=== PATIENT | male | born 1940 | race Caucasian/White ===

== ENCOUNTER 2016-09-29 17:07 | Inpatient (IN) ==
[2016-09-29] MEDS ORDERED: 0.9 % Sodium Chloride 1,000 ML IVC ONE (17:12)
[2016-09-29] MEDS ORDERED: Piperacillin/Tazobactam 3.375 GM in D5% in Water (Mini-Bag+) 100 ML IVPB ONE (17:12)
[2016-09-29] MEDS ORDERED: Levofloxacin 750 MG/150 ML 750 MG/150 ML BAG IVPB ONE (17:12)
[2016-09-29] MEDS ORDERED: Vancomycin 1,500 MG in D5% in Water 250 ML IVPB ONE (17:14)
--- NOTE | 2016-09-29 17:19 | Emergency Department Note ---
Disposition Clinical Impression: Respiratory distress, ALS (amyotrophic lateral sclerosis) Pulmonary embolism Qualifiers: Pulmonary embolism type: other Chronicity: unspecified Acute cor pulmonale presence: without acute cor pulmonale Qualified Code(s): I26.99 - Other pulmonary embolism without acute cor pulmonale Pneumonia Qualifiers: Pneumonia type: due to unspecified organism Laterality: unspecified laterality Lung location: unspecified part of lung Qualified Code(s): J18.9 - Pneumonia, unspecified organism Disposition: Admitted As Inpatient Condition: Critical SOB HPI - General Chief Complaint: ED Shortness of Breath/Dyspnea Stated Complaint: "als, respdistress, PE" Source: patient, EMS Mode of arrival: EMS Limitations: age Nursing Notes Reviewed: Yes Vital Signs Reviewed: Yes - History of Present Illness 76-year-old male with a history of ALS, COPD, diabetes presents for evaluation from the [facility] inpatient unit for concerns of increasing work of breathing and respiratory distress. Patient also has a history of recent PE diagnosed by CTA on September 25 and the patient on therapeutic Lovenox. Patient's is a DNR CCA DNR I. The patient confirms that he does not want intubation or breathing tube. EMS reports that the patient passed a swallow study a couple days ago but notes worsening respiratory symptoms that occurred around noon today after possibly receiving his medications. Patient is not able to provide a complete review of systems given his current increased work of breathing and respiratory distress. Much of the history and physical reviewed by chart document dictation from the [facility] reveals acute hyper [place] toward failure secondary to exacerbation of COPD. Patient was placed on positive pressure ventilation prior to arrival. Patient was receiving Solu-Medrol 80 mg as well as nebs. Patient was being treated for healthcare acquired pneumonia with Zosyn which appeared to be improving until this ER presentation. Patient did have a document of a PE with right lower lobe filling defect from CTA on Lovenox. Patient had a negative head CT on September 25 for any intracranial bleed. Family not at bedside to provide additional history. - Related Data Allergies Allergy/AdvReac Type Severity Reaction Status Date / Time No Known Allergies Allergy Verified 07/30/16 03:54 Limitations: ROS unobtainable due to patients medical condition Past Medical History - Past Medical History Medical history: Reports: cancer, COPD, coronary artery disease, DVT, diabetes, hyperlipidemia, hypertension, pulmonary embolus, other Psychiatric history: Reports: no psych history - Social History Smoking Status: Former smoker Smokeless Tobacco Status: No Alcohol use: Reports: none Drug use: Reports: none Physical Exam - General Limitations: physical limitation General appearance: alert, in distress, other (Appears chronically ill) - Head Head exam: atraumatic, normocephalic - Eye Eye exam: Present: normal appearance, EOMI. Absent: scleral icterus - ENT ENT exam: normal exam, mucous membranes moist - Neck Neck exam: Present: normal inspection - Chest Chest inspection: Present: normal inspection, symmetric chest wall rise - Respiratory Respiratory exam: Present: respiratory distress, accessory muscle use, prolonged expiratory phase, other (Diffusely decreased breath sounds with right- sided ronchi) - Cardiovascular Cardiovascular exam: Present: regular rate, normal rhythm. Absent: systolic murmur - Abdominal Exam Abdominal exam: Present: soft, Non-Tender, distention. Absent: guarding, rebound - Male exam: Present: other (Dia catheter present draining pink tinged urine) - Extremities Exam Extremities exam: Present: normal inspection, pedal edema (1+ bilateral) - Expanded Lower Extremity Exam Neurovascular/Tendon exam: Present: normal capillary refill - Neurological Exam Neurological exam: Present: alert, CN II-XII intact - Skin Skin exam: Present: warm, dry, intact, normal color Course Course Narrative: Patient seen and examined initially upon arrival. Patient's on positive pressure ventilation. Patient confirms that he does not want any intubation if his breathing were to worsen. Patients receiving IV potassium prehospital due to prehospital labs obtained earlier today which showed a potassium of 3. Concerns for the patient's respiratory decline. Etiologies include known pulmonary embolism, aspiration pneumonia, exacerbation of COPD. Patient does have ALS and is at increased risk of aspiration even given the recent swallow study. Patient will get an extensive workup including labs, ABG, EKG, troponin , lactate as well as IV fluids, empiric antibiotics initiated for healthcare associated pneumonia. Given the patient's volume status and unknown cardiac EF will titrate gradually with IV fluids. The patient appears to have a nonfocal neurologic examination. The patient also has had a negative head CT on September 25. Patient's CTA of the chest from 09/25 shows a filling defect in the anterior left lobe segmental pulmonary artery consistent with pulmonary embolism. Also had diffuse wall thickening with multifocal areas of plugging/ secretions. Mild patchy areas of increased density in the right upper lobe right lower lobe and left lower lobe consistent with atelectasis or pneumonia. Patient does have potassium hanging. Disposition admission. - Reevaluation(s) Reevaluation #1: Patient seen and examined. Patient's on 60% FiO2 satting 90%. Patient's chest x-ray shows no acute cardiopulmonary disease. However patient was on Zosyn prior to and chest x-ray findings may be delayed. Empiric antibiotics are started. No elevated Aa gradient. Bedside echo does show a trace pericardial fluid but no evidence of tamponade. Patient may also have progression of his chronic lower motor neuron disease. Time: 18:12 Reevaluation #2: Spoke with hospitalist regarding patient's care. Patient will be admitted. Patient also aware of plan of care. Time: 18:32 Reevaluation #3: Patient had acute change in hypoxia. Patient's FiO2 was increased to 100%. Respiratory called for DuoNeb's. Time: 19:11 Additional Reevaluation(s): 2003: Patient remains in the [facility] department awaiting transportation. Patient is requiring increased BiPAP settings. Patient received nebs. Patient continues to be a DNR CCA CCI. Refusing intubation. We will continue support the patient's respirations. Family contacted and made aware of the patient's critical condition. Vital Signs Respiratory Rate 21 09/29/16 17:08 Blood Pressure 154/74 09/29/16 17:08 O2 Sat by Pulse Oximetry 98 09/29/16 17:08 Temperature 97.8 F 09/29/16 17:12 Pulse Rate 89 09/29/16 19:21 Respiratory Rate 22 09/29/16 19:21 Blood Pressure 132/57 09/29/16 19:21 O2 Sat by Pulse Oximetry 81 09/29/16 19:21 Oxygen Delivery Oxygen Delivery Bipap Shortness of Breath/Dyspnea - [facility] Narrative Medical decision making narrative: 76-year-old male with a history of ALS presented for evaluation of respiratory distress. [facility] Continue that therapy here upon arrival. Patient was requiring positive pressure ventilation. Patient confirmed that he does not want intubation if his respiratory status declined. Patient had a complete evaluation looking for etiology of patient's respiratory distress. Patient chest x-ray did not show any acute findings however this may be delayed finding with possible aspiration. Empiric antibiotics were added to the Zosyn. Patient also has a [facility] of this month was on therapeutic Lovenox. Patient's labs reviewed that show leukocytosis possibly related to steroid use or secondary infection. Patient's bedside echo was heart showed trace effusion but no evidence of tamponade not. Patient's lab also so hypokalemia and was given IV potassium therapy prehospital which was continued in the emergency department. Patient is alert and appropriate. Patient possibly has exacerbation of his chronic ALS. Patient will be admitted to the hospital service for further evaluation and monitoring. Family was called regarding the patient's condition. Patient was updated on plan of care. - Lab Data Lab results reviewed: Yes I reviewed the patient's lab results. Result diagrams: 09/29/16 17:38 09/29/16 17:38 Lab Results 09/29/16 09/29/16 09/29/16 Range/Units 17:13 17:22 17:38 WBC 12.3 H (4.3-11.1) K/mcL RBC 3.50 L (4.19-5.50) M/mcL Hgb 10.2 L (12.9-16.9) g/dL Hct 32.0 L (37.5-50.1) % MCV 91.4 (83.0-100.0) fL MCH 29.1 (28.0-33.3) pg MCHC 31.9 (31.6-35.5) g/dL RDW 13.2 (11.5-14.5) % Plt Count 330 (140-400) K/mcL MPV 9.4 (9.4-12.4) fL Immature Gran % 1.7 (0-4) % Seg Neutrophils % 87.8 % Lymphocytes % 3.4 % Monocytes % 6.9 % Eosinophils % 0.0 % Basophils % 0.2 % Neutrophils # 10.8 H (1.6-8.9) K/mcL Lymphocytes # 0.4 L (0.6-4.6) K/mcL Monocytes # 0.8 (0.0-1.3) K/mcL Eosinophils # 0.0 (0.0-0.6) K/mcL Basophils # 0.0 (0.0-0.2) K/mcL Nucleated RBCs/100 WBC 0.2 H (0) /100 WBC PT (9.4-12.1) Seconds INR APTT (26.0-36.0) Seconds ABG pH 7.36 (7.32-7.45) pH Units ABG pCO2 55 H (35-45) mmHg ABG pO2 88 (85-104) mmHg ABG HCO3 31.1 H (21-27) mEQ/L ABG Total CO2 32.8 H (20-26) mEq/L ABG O2 Saturation 96 (95-98) % ABG Base Excess 4.6 H (-2.0 to 3.0) mEq/L Blood Gas Modality VENT Inspired O2 40 % Sodium (136-145) mEq/L Potassium (3.5-4.5) mEq/L Chloride (98-109) mEq/L Carbon Dioxide (19-29) mEq/L BUN (8-26) mg/dL Creatinine (0.72-1.25) mg/dL Est GFR ( Amer) (> 60) Est GFR (Non-Af Amer) (> 60) BUN/Creatinine Ratio (6-26) Glucose (70-99) mg/dL Calculated Osmolality (280-300) Lactic Acid (0.5-2.2) mmol/L Calcium (8.6-10.8) mg/dL Phosphorus (2.3-4.7) mg/dL Magnesium (1.6-2.6) mg/dL Total Bilirubin (0.2-1.2) mg/dL Direct Bilirubin (0.0-0.5) mg/dL Indirect Bilirubin (0.0-1.2) mg/dL AST (5-34) Units/L ALT (0-55) Units/L Alkaline Phosphatase (38-126) Units/L Troponin I (0-0.03) ng/mL B-Natriuretic Peptide (0-100) pg/mL Serum Total Protein (6.0-8.3) g/dL Albumin (3.5-5.0) g/dL Globulin (2.4-3.5) g/dL Albumin/Globulin Ratio (1.1-2.2) Ur Specimen Adequacy See below A Urine Color Red A (Yellow) Urine Clarity Cloudy A (Clear) Urine pH 6.0 (5.0-8.0) pH Units Ur Specific [place] > 1.030 H (1.010-1.025) Urine Protein 100 H (Neg-Trace) mg/dL Urine Glucose (UA) >=1000 H (Normal) mg/dL Urine Ketones 80 H (Negative) mg/dL Urine Blood Large H (Negative) Urine Nitrite Negative (Negative) Urine Bilirubin Negative (Negative) Urine Urobilinogen Normal (Normal) mg/dL Ur Leukocyte Esterase Negative (Negative) Ur Culture Indicated? NO (NO) 09/29/16 09/29/16 09/29/16 Range/Units 17:38 17:38 17:38 WBC (4.3-11.1) K/mcL RBC (4.19-5.50) M/mcL Hgb (12.9-16.9) g/dL Hct (37.5-50.1) % MCV (83.0-100.0) fL MCH (28.0-33.3) pg MCHC (31.6-35.5) g/dL RDW (11.5-14.5) % Plt Count (140-400) K/mcL MPV (9.4-12.4) fL Immature Gran % (0-4) % Seg Neutrophils % % Lymphocytes % % Monocytes % % Eosinophils % % Basophils % % Neutrophils # (1.6-8.9) K/mcL Lymphocytes # (0.6-4.6) K/mcL Monocytes # (0.0-1.3) K/mcL Eosinophils # (0.0-0.6) K/mcL Basophils # (0.0-0.2) K/mcL Nucleated RBCs/100 WBC (0) /100 WBC PT 12.5 H (9.4-12.1) Seconds INR 1.2 APTT 38.1 H (26.0-36.0) Seconds ABG pH (7.32-7.45) pH Units ABG pCO2 (35-45) mmHg ABG pO2 (85-104) mmHg ABG HCO3 (21-27) mEQ/L ABG Total CO2 (20-26) mEq/L ABG O2 Saturation (95-98) % ABG Base Excess (-2.0 to 3.0) mEq/L Blood Gas Modality Inspired O2 % Sodium 144 (136-145) mEq/L Potassium 3.0 L (3.5-4.5) mEq/L Chloride 105 (98-109) mEq/L Carbon Dioxide 31 H (19-29) mEq/L BUN 24 (8-26) mg/dL Creatinine 0.56 L (0.72-1.25) mg/dL Est GFR ( Amer) > 60 (> 60) Est GFR (Non-Af Amer) > 60 (> 60) BUN/Creatinine Ratio 43 H (6-26) Glucose 216 H (70-99) mg/dL Calculated Osmolality 309 H (280-300) Lactic Acid 1.2 (0.5-2.2) mmol/L Calcium 8.4 L (8.6-10.8) mg/dL Phosphorus 1.6 L (2.3-4.7) mg/dL Magnesium 2.0 (1.6-2.6) mg/dL Total Bilirubin 0.9 (0.2-1.2) mg/dL Direct Bilirubin 0.2 (0.0-0.5) mg/dL Indirect Bilirubin 0.7 (0.0-1.2) mg/dL AST 43 H (5-34) Units/L ALT 119 H (0-55) Units/L Alkaline Phosphatase 55 (38-126) Units/L Troponin I (0-0.03) ng/mL B-Natriuretic Peptide (0-100) pg/mL Serum Total Protein 6.1 (6.0-8.3) g/dL Albumin 3.4 L (3.5-5.0) g/dL Globulin 2.7 (2.4-3.5) g/dL Albumin/Globulin Ratio 1.3 (1.1-2.2) Ur Specimen Adequacy Urine Color (Yellow) Urine Clarity (Clear) Urine pH (5.0-8.0) pH Units Ur Specific [place] (1.010-1.025) Urine Protein (Neg-Trace) mg/dL Urine Glucose (UA) (Normal) mg/dL Urine Ketones (Negative) mg/dL Urine Blood (Negative) Urine Nitrite (Negative) Urine Bilirubin (Negative) Urine Urobilinogen (Normal) mg/dL Ur Leukocyte Esterase (Negative) Ur Culture Indicated? (NO) 09/29/16 09/29/16 Range/Units 17:38 17:38 WBC (4.3-11.1) K/mcL RBC (4.19-5.50) M/mcL Hgb (12.9-16.9) g/dL Hct (37.5-50.1) % MCV (83.0-100.0) fL MCH (28.0-33.3) pg MCHC (31.6-35.5) g/dL RDW (11.5-14.5) % Plt Count (140-400) K/mcL MPV (9.4-12.4) fL Immature Gran % (0-4) % Seg Neutrophils % % Lymphocytes % % Monocytes % % Eosinophils % % Basophils % % Neutrophils # (1.6-8.9) K/mcL Lymphocytes # (0.6-4.6) K/mcL Monocytes # (0.0-1.3) K/mcL Eosinophils # (0.0-0.6) K/mcL Basophils # (0.0-0.2) K/mcL Nucleated RBCs/100 WBC (0) /100 WBC PT (9.4-12.1) Seconds INR APTT (26.0-36.0) Seconds ABG pH (7.32-7.45) pH Units ABG pCO2 (35-45) mmHg ABG pO2 (85-104) mmHg ABG HCO3 (21-27) mEQ/L ABG Total CO2 (20-26) mEq/L ABG O2 Saturation (95-98) % ABG Base Excess (-2.0 to 3.0) mEq/L Blood Gas Modality Inspired O2 % Sodium (136-145) mEq/L Potassium (3.5-4.5) mEq/L Chloride (98-109) mEq/L Carbon Dioxide (19-29) mEq/L BUN (8-26) mg/dL Creatinine (0.72-1.25) mg/dL Est GFR ( Amer) (> 60) Est GFR (Non-Af Amer) (> 60) BUN/Creatinine Ratio (6-26) Glucose (70-99) mg/dL Calculated Osmolality (280-300) Lactic Acid (0.5-2.2) mmol/L Calcium (8.6-10.8) mg/dL Phosphorus (2.3-4.7) mg/dL Magnesium (1.6-2.6) mg/dL Total Bilirubin (0.2-1.2) mg/dL Direct Bilirubin (0.0-0.5) mg/dL Indirect Bilirubin (0.0-1.2) mg/dL AST (5-34) Units/L ALT (0-55) Units/L Alkaline Phosphatase (38-126) Units/L Troponin I 0.01 (0-0.03) ng/mL B-Natriuretic Peptide 126 H (0-100) pg/mL Serum Total Protein (6.0-8.3) g/dL Albumin (3.5-5.0) g/dL Globulin (2.4-3.5) g/dL Albumin/Globulin Ratio (1.1-2.2) Ur Specimen Adequacy Urine Color (Yellow) Urine Clarity (Clear) Urine pH (5.0-8.0) pH Units Ur Specific [place] (1.010-1.025) Urine Protein (Neg-Trace) mg/dL Urine Glucose (UA) (Normal) mg/dL Urine Ketones (Negative) mg/dL Urine Blood (Negative) Urine Nitrite (Negative) Urine Bilirubin (Negative) Urine Urobilinogen (Normal) mg/dL Ur Leukocyte Esterase (Negative) Ur Culture Indicated? (NO) - Radiology Data Radiology results reviewed: Yes I reviewed the patient's radiology results. Chest X-Ray 09/29/16 17:12 IMPRESSION: No acute cardiopulmonary disease. D/ / Kareem Allen MD / Kareem Allen MD Interpreting Provider: Kareem Allen MD - EKG Data EKG attestation: Yes I reviewed and interpreted this EKG. EKG shows normal: Reports: sinus rhythm Rate: Reports: normal Rhythm: Reports: NSR [place]/QRS: Reports: normal T wave inversions noted in: Reports: v1, v2, v3, v4 (Flattened), v5 (Flattened) QRS morphology: Reports: poor R-wave progression When compared to previous EKG there are: previous EKG unavailable Interpretation: Reports: nonspecific ST-T wave changes S.B.A.R. - S.B.A.R. Situation: Demographics Background: Presenting Complaint Assessment: Vital Signs, Course and respsone to treatment, Patient/Family Expectation, Pertinant Lab Results, Outstanding Labs Recommendation: Barrier(s) to disposition, Recommendation based on pending studies, treatments, or consults S.B.A.R. Report Given to: Zan Patel Repor Time: 18:32 Attestation Statement - Attestation Attestation: I dr ngo examined this patient and my medical decision-making was reviewed with the COMMISSION[employer]/PA/Advanced Practice Nurse/Resident Physician. I agree with the documented findings, disposition and treatment plan as described except to the extent set forth below. Patient was transferred over from the [place] hospital. Patient and increasing respiratory distress. Patient was recently diagnosed with a recurrent pulmonary embolus in the left lung. Patient also is in respiratory distress with COPD and CO2 retention. He had a recent pneumonia that was diagnosed on September 25. Patient has been on Zosyn for this. It seems based on chest x-ray reports that the pneumonia had been clearing up. He is a DNR CCA with no intubation. Patient is also been treated with Lovenox and apparently has had blood in the Dia catheter as well as coughing [facility] some [facility]. Plan at this time is to continue his BiPAP treatment for the CO2 retention. Repeat labs ABG and chest x-ray.
[2016-09-29 17:20] LABS: ABG Base Excess 4.6 mEq/L (-2.0 to 3.0); ABG HCO3 31.1 mEQ/L (21-27); ABG Oxygen Saturation 96 % (95-98); ABG PCO2 55 mmHg (35-45); ABG PH 7.36 pH Units (7.32-7.45); ABG PO2 88 mmHg (85-104); ABG TCO2 32.8 mEq/L (20-26)
[2016-09-29 17:23] LABS: Blood Gas FiO2 40 %
[2016-09-29 17:45] LABS: Bilirubin,Urine Negative (Negative); Blood,Urine Large (Negative); Glucose,Urine (UA) >=1000 mg/dL (Normal); Ketones,Urine 80 mg/dL (Negative); Leukocyte Esterase,Urine Negative (Negative); Nitrite,Urine Negative (Negative); Protein,Urine 100 mg/dL (Neg-Trace); Specific Gravity,Urine > 1.030 (1.010-1.025); Urobilinogen,Urine Normal (Normal)
[2016-09-29 17:46] LABS: Clarity,Urine Cloudy (Clear); Color,Urine Red (Yellow)
[2016-09-29 18:07] LABS: Basophils % 0.2 %; Hemoglobin 10.2 g/dL (12.9-16.9); Immature Granulocytes % 1.7 % (0-4); Lymphocytes # 0.4 K/mcL (0.6-4.6); Lymphocytes % 3.4 %; Mean Corpuscular HGB Conc 31.9 g/dL (31.6-35.5); Mean Corpuscular Hemoglobin 29.1 pg (28.0-33.3); Mean Corpuscular Volume 91.4 fL (83.0-100.0); Mean Platelet Volume 9.4 fL (9.4-12.4); Monocytes # 0.8 K/mcL (0.0-1.3); Monocytes % 6.9 %; Neutrophils # 10.8 K/mcL (1.6-8.9); Nucleated Red Blood Cells 0.2 /100 WBC (0); Platelet Count 330 K/mcL (140-400); Red Cell Distribution Width 13.2 % (11.5-14.5); Segmented Neutrophils % 87.8 %
[2016-09-29 18:12] LABS: INR 1.2; Prothrombin Time 12.5 Seconds (9.4-12.1)
[2016-09-29 18:15] LABS: Activated Partial Thrombo Time 38.1 Seconds (26.0-36.0)
[2016-09-29 18:21] LABS: Alanine Aminotransferase 119 Units/L (0-55); Albumin 3.4 g/dL (3.5-5.0); Albumin/Globulin Ratio 1.3 (1.1-2.2); Alkaline Phosphatase 55 Units/L (38-126); Aspartate Amino Transferase 43 Units/L (5-34); BUN/Creatinine Ratio 43 (6-26); Bilirubin,Direct 0.2 mg/dL (0.0-0.5); Bilirubin,Indirect 0.7 mg/dL (0.0-1.2); Bilirubin,Total 0.9 mg/dL (0.2-1.2); Blood Urea Nitrogen 24 mg/dL (8-26); Calcium 8.4 mg/dL (8.6-10.8); Carbon Dioxide 31 mEq/L (19-29); Chloride 105 mEq/L (98-109); Globulin 2.7 g/dL (2.4-3.5); Glucose 216 mg/dL (70-99); Osmolality,Calculated 309 (280-300); Phosphorous 1.6 mg/dL (2.3-4.7); Sodium 144 mEq/L (136-145); Total Protein 6.1 g/dL (6.0-8.3); eGFR For African Americans > 60 (> 60); eGFR For Non-African Americans > 60 (> 60)
[2016-09-29] MEDS ORDERED: Ipratropium/Albuterol Neb 3 ML IH ONE (19:01)
--- NOTE | 2016-09-29 20:25 | Internal Med History&Physical ---
Date of Encounter: 09/29/16 Time of Encounter: 20:18 Assessment and Plan (1) Acute hypoxemic respiratory failure Current visit: Yes Status: Acute Likely secondary to COPD exacerbation in setting of possible aspiration pneumonia Given patient's code status of DNR-CCA/DNI, will support with BiPAP, breathing treatments Will keep patient comfortable and decrease work of breathing with anxiolytic and analgesics Start steroids at 40 mg q8hr (2) COPD (chronic obstructive pulmonary disease) Current visit: Yes Status: Chronic Continue with BiPAP and breathing treatments as above Steroids at 40 mg q8hr Qualifiers: Qualified Code(s): J44.9 - Chronic obstructive pulmonary disease, unspecified (3) Goals of care, counseling/discussion Current visit: Yes Status: Acute Current code status of DNR - CCA/DNI confirmed by sister/POA Mitzy Zavala who can be reached at [phone] Will consult palliative care, appreciate recommendations (4) Pneumonia Current visit: Yes Status: Acute Likely hospital acquired given his recent admission at the [facility], but cannot rule out aspiration He received Vanc, Zosyn, Levaquin which we will continue Blood cultures collected, await results and sensitivities Qualifiers: Pneumonia type: due to unspecified organism Laterality: unspecified laterality Lung location: unspecified part of lung Qualified Code(s): J18.9 - Pneumonia, unspecified organism (5) Diabetes Current visit: Yes Status: Chronic Start on low dose SSI accuchecks q6hr while NPO Qualifiers: Qualified Code(s): E11.9 - Type 2 diabetes mellitus without complications (6) ALS (amyotrophic lateral sclerosis) Current visit: Yes Status: Chronic (7) DVT prophylaxis Current visit: Yes Status: Acute Lovenox given recent PE Internal Medicine - H&P: HPI Chief complaint: SOB Admitted From: Intrahospital Transfer Plans for Post Hospital Care: Hospice - Medical Facility History of present illness: Mr. Whyte is a 76 year old male who was transferred from the [facility] with shortness of breath, and has respiratory failure secondary to COPD in setting of ALS. He has severe difficulty breathing at this time and is unable to provide any history or ROS and there is no family at bedside. All information gathered is from ER staff/documentation. He was at the [facility] where he was treated for pneumonia with Zosyn and breathing treatments. He presented to the [facility] ED on BiPAP and required 100% FiO2 and was still saturating in the mid 80's. Of note, he was recently diagnosed with PE 4 days ago and is currently on therapeutic Lovenox. He also passed a swallow evaluation 2 days but there is concern of aspiration. I was able to contact patient's sister/DPOA, Mitzy Zavala, who confirmed that patient is a DNR-CCA/DNI. I explained to her the patient's rapidly deteriorating respiratory status, but she is out of town at the moment and is on her way over. Past Med Surg Social Fam HX - Past Medical History Medical history: cancer, COPD, coronary artery disease, DVT, diabetes, hyperlipidemia, hypertension, pulmonary embolus, other Psychiatric history: no psych history - Social History Smoking Status: Former smoker Smokeless Tobacco Status: No Alcohol use: none Drug use: none Internal Medicine - H&P: Meds Allergies No Known Allergies Allergy (Verified 07/30/16 03:54) ROS unobtainable: other (due to respiratory distress) All Systems PM: A 10-system review of systems was performed and is negative for pertinent findings except as documented above in the HPI. - Constitutional Vitals: Temp Pulse Resp BP Pulse Ox 97.8 F 89 22 132/57 81 09/29/16 17:12 09/29/16 19:21 09/29/16 19:21 09/29/16 19:21 09/29/16 19:21 General appearance: Present: severe distress (respiratory) Exam: when asked if he was in any pain, he muffled the words "can't breathe" - Head Head exam: Present: atraumatic, normocephalic - Eye Eye exam: Present: conjuntiva pink, sclera anicteric - Neck Neck exam general surgery: Present: supple, trachea midline. Absent: lymphadenopathy - Respiratory Respiratory exam: Present: accessory muscle use, decreased breath sounds, rales , respiratory distress. Absent: rhonchi, wheezes - Cardiovascular Cardiovascular exam: Present: RRR, +S1, +S2. Absent: diastolic murmur, gallop, rubs, systolic murmur - GI/Abdominal GI/Abdominal exam: Present: normal bowel sounds, soft, no peritoneal signs. Absent: distended, tenderness - Extremities Exam Extremities exam: Present: warm, radial pulses palpable and symetrical. Absent : calf tenderness, cyanotic, pedal edema - Neurological Exam Neurological exam: Absent: facial droop, speech deficit Additional comments: unable to fully assess due to respiratory status - Skin Skin exam: Present: dry, intact Internal Med - H&P Results - Labs CBC & Chem 7: 09/29/16 17:38 09/29/16 17:38
[2016-09-29] MEDS ORDERED: Naloxone 0.4 MG/ML INJ IVP PRN (20:34)
[2016-09-29] MEDS ORDERED: Dextrose Gel 15 GM PO PRN ×2 (20:34)
[2016-09-29] MEDS ORDERED: *HR* Dextrose 50 % in Water (Syg) 50 ML SYRINGE IVP PRN (20:34)
[2016-09-29] MEDS ORDERED: *HR* Promethazine 25 MG/ML VIAL IVP PRN (20:34)
[2016-09-29] MEDS ORDERED: D5% in Water 1,000 ML IVC PRN (20:34)
[2016-09-29] MEDS ORDERED: Albuterol 2.5 MG/3 ML NEBULIZER IH PRN (20:44)
[2016-09-29] MEDS ORDERED: Vancomycin 1,250 MG in D5% in Water 250 ML IVPB SCH (21:00)
[2016-09-29] MEDS ORDERED: Budesonide/Formoterol 160/4.5 MDI IH SCH (22:00)
[2016-09-30] MEDS: Piperacillin/Tazobactam 3.375 GM in D5% in Water (Mini-Bag+) 100 ML IVPB SCH ×4 (00:03→23:43)
[2016-09-30] MEDS: MethylPREDNISolone 40 MG/ML VIAL IVP SCH ×4 (00:03→23:43)
[2016-09-30] MEDS: Insulin LISPRO 300 UNITS/3 ML VIAL SQ SCH ×4 (00:04→17:31)
[2016-09-30] MEDS: Ipratropium/Albuterol Neb 3 ML IH SCH ×7 (00:08→23:29)
[2016-09-30] MEDS: *HR* Morphine 2 MG/ML SYRINGE IVP PRN ×2 (04:00→14:14)
[2016-09-30] MEDS: *HR* LORazepam 2 MG/ML VIAL IVP PRN ×2 (04:21→18:36)
[2016-09-30 05:34] LABS: ABG Base Excess 8.4 mEq/L (-2.0 to 3.0); ABG HCO3 36.4 mEQ/L (21-27); ABG Oxygen Saturation 98 % (95-98); ABG PO2 117 mmHg (85-104); ABG TCO2 38.7 mEq/L (20-26)
[2016-09-30 05:36] LABS: ABG PCO2 74 mmHg (35-45)
[2016-09-30] MEDS: *HR* Enoxaparin 100 MG/ML SYRINGE SQ SCH ×2 (06:07→17:16)
[2016-09-30] MEDS: Vancomycin 1,250 MG in D5% in Water 250 ML IVPB SCH ×2 (06:08→17:15)
[2016-09-30 07:39] LABS: Basophils % 0.1 %; Hematocrit 27.4 % (37.5-50.1); Hemoglobin 9.1 g/dL (12.9-16.9); Immature Granulocytes % 1.8 % (0-4); Lymphocytes # 0.5 K/mcL (0.6-4.6); Lymphocytes % 3.9 %; Mean Corpuscular HGB Conc 33.2 g/dL (31.6-35.5); Mean Corpuscular Hemoglobin 30.1 pg (28.0-33.3); Mean Corpuscular Volume 90.7 fL (83.0-100.0); Mean Platelet Volume 10.3 fL (9.4-12.4); Monocytes # 1.3 K/mcL (0.0-1.3); Monocytes % 9.5 %; Neutrophils # 11.6 K/mcL (1.6-8.9); Platelet Count 273 K/mcL (140-400); Red Blood Count 3.02 M/mcL (4.19-5.50); Red Cell Distribution Width 13.3 % (11.5-14.5); Segmented Neutrophils % 84.7 %
[2016-09-30 07:55] LABS: BUN/Creatinine Ratio 55 (6-26); Blood Urea Nitrogen 32 mg/dL (8-26); Carbon Dioxide 29 mEq/L (19-29); Chloride 106 mEq/L (98-109); Glucose 224 mg/dL (70-99); Magnesium 2.1 mg/dL (1.6-2.6); Osmolality,Calculated 310 (280-300); Phosphorous 1.6 mg/dL (2.3-4.7); Potassium 3.2 mEq/L (3.5-4.5); Sodium 143 mEq/L (136-145); eGFR For African Americans > 60 (> 60); eGFR For Non-African Americans > 60 (> 60)
[2016-09-30] MEDS: Aspirin 81 MG TAB.CHEW PO SCH (10:20)
[2016-09-30] MEDS: Furosemide 40 MG/4 ML VIAL IVP SCH ×2 (11:36→20:17)
--- NOTE | 2016-09-30 12:28 | Palliative - Consult Note ---
Date of Encounter: 09/30/16 Time of Encounter: 11:30 - Assessment and Plan (1) Goals of care, counseling/discussion Current Visit: Yes Status: Acute Assessment and plan: Patients sister/POCarmen Forrester is at bedside. Conducted a 30 minute conversation related to patients GOC. Patient was seen by [facility] palliative care team last week. Mitzy states at that time the patient did not desire Hospice care but was "OK" with being followed by the palliative care team. She reports that the patient is well aware that his ALS has progressed and that he passed a swallow evaluation but had desired a PEG tube if he would of failed. The patient is on Bipap and not engaging in our conversation due to his SOB and need for Bipap. The patient was diagnosed with ALS in February 2013 and has a decline in performamce over the last 3 months. At baseline, he needs assistance with transferring and is mostly in bed but does get up into the at times. She reports that the patient choked when eating at the [facility] and was diagnosed with pneumonia and transferred here for care. She reports that he has 100% service connectivity. The plan will be to have the patient return to the [facility] at [facility] if he is able. I explained the POC and she agrees to continue Bipap and medications to see if the patient can recover. She is well aware of the patients over all poor status with COPD and ALS. She would like to have the patient participate in GOC discussion if poosible. He is a DNRCC-A, DNI. We will continue to follow and have additional conversations. (2) Dyspnea Current Visit: Yes Status: Acute Assessment and plan: Patient with dyspnea. Patient on Bipap, steroids, Duonebs, Antibiotics, symbicort. Morphine PRN Continue to follow. Qualifiers: Dyspnea type: shortness of breath Qualified Code(s): R06.02 - Shortness of breath (3) Anxiety Current Visit: No Status: Acute Assessment and plan: Patient with anxiety from SOB. PRB Ativan every 2 hrs. Will monitor. (4) ALS (amyotrophic lateral sclerosis) Current Visit: Yes Status: Chronic (5) COPD (chronic obstructive pulmonary disease) Current Visit: Yes Status: Chronic Assessment and plan: per Hospitalist group Qualifiers: COPD type: unspecified COPD Qualified Code(s): J44.9 - Chronic obstructive pulmonary disease, unspecified (6) Pneumonia Current Visit: Yes Status: Acute Assessment and plan: Antibiotics, Bipap Qualifiers: Pneumonia type: due to unspecified organism Laterality: unspecified laterality Lung location: unspecified part of lung Qualified Code(s): J18.9 - Pneumonia, unspecified organism Palliative-CN HPI - Data of Consult Patient: new to practice Consult date: 09/30/16 Requesting Physician: Caro Polanco [facility] Provider[facility] - Consult Narrative Palliative Care/Comfort Measures: Palliative care Reason for consult: Goals of Care History of present illness: Mr. Whyte is a 76 year old male with a history of CAD, CABG, COPD, ALS, DM. The patient is currently on bipap with is eyes closed. He shakes his head yes and no to questions asked. The patient is unable to have a conversation d/t SOB and Bipap at this time. His sister/JAQUI Forrester is at bedside assisting with H&P. The patient was living [facility] until July of this year when he became to much for her to care for. The patient has been in the [facility] since then. Mitzy reports that he was diagnosed with ALS in February of 2013 but has really declined in hos overall performance in the past 3 months. The patient has been brought [facility] with ARF and placed in Bipap. Upon this consult he is resting quietly on 60% FiO2 with a rate of 8. This palliative care consult is for goals of care discussion. CC: Caro Polanco Past Med Surg Social Fam HX - Past Medical History Source: old records reviewed, obtained from family Medical history: cancer, COPD, coronary artery disease, DVT, diabetes, hyperlipidemia, hypertension, pulmonary embolus, other Psychiatric history: no psych history - Social History Smoking Status: Former smoker Smokeless Tobacco Status: No Alcohol use: none Drug use: none Medications and Allergies Aspirin 81 mg PO DAILY 09/29/16 [History] Carvedilol 3.125 mg PO BID 09/29/16 [History] Enoxaparin [Lovenox] 80 mg SQ DAILY 09/29/16 [History] Gabapentin [Neurontin] 300 mg PO BID 09/29/16 [History] Guaifenesin [Tussin Honey] 400 mg PO TID 09/29/16 [History] Insulin NPH Human Isophane [Novolin N] 09/29/16 [History] Ipratropium/Albuterol Neb 09/29/16 [History] Lactobacillus [Culturelle] 1 each PO BID 09/29/16 [History] MethylPREDNISolone Acet(DEPOT) [DEPO-Medrol] 80 mg IVP Q6H 09/29/16 [History] Potassium Chloride [K-Tab ER] 20 meq PO BID 09/29/16 [History] Sennosides/Docusate Sodium [Sm Regla Lax Plus Stool Softener] 2 each PO DAILY [History] Sertraline [Zoloft] 100 mg PO DAILY 09/29/16 [History] Tramadol HCl [Ultram] 50 mg PO QID PRN 09/29/16 [History] hydrALAZINE [HydrALAZINE] 10 mg IV Q6HR 09/29/16 [History] metFORMIN [Glucophage] 500 mg PO BIDWM 09/29/16 [History] Allergies No Known Allergies Allergy (Verified 07/30/16 03:54) ROS unobtainable: other (limited due to the Bipap and mental status) Review of systems: Moves head to the yes position for SOB. - Constitutional Constitutional ROS PAL: fatigue - EENT Eyes: requires corrective lenses - Cardiovascular Cardiovascular ROS: pedal edema - Respiratory Respiratory: dyspnea, wheezing - Genitourinary Genitourinary ROS male: hematuria - Musculoskeletal Musculoskeletal ROS IM: myalgias - Integumentary ROS Integumentary: dry skin - Neurological Neurological ROS: lack of coordination Palliative Care-Exam - Constitutional Vitals: Temp Pulse Resp BP Pulse Ox 97.0 F L 75 19 136/61 97 09/30/16 11:34 09/30/16 12:14 09/30/16 11:34 09/30/16 11:34 09/30/16 11:34 General appearance: Present: cooperative, no acute distress - Head Head Exam: Present: atraumatic, normal inspection, normocephalic - Eye Eye exam: Present: PERRL - ENT ENT exam: Present: mucous membranes moist - Respiratory Respiratory exam: Present: wheezes - Expanded Respiratory Exam Location: rhonchi: Left, Right, Upper (scattered) - Cardiovascular Cardiovascular exam: Present: RRR, +S1, +S2 - Expanded Cardiovascular Exam Peripheral pulses: 1+: Femoral (L) PM, Femoral (R) PM, Posterior Tibialis (L), Posterior Tibialis (R), 2+: Carotid (L) PM, Carotid (R) PM, Radial (L), Radial ( R), Dorsalis Pedis (L) PM, Dorsalis Pedis (R) PM - GI/Abdominal Exam GI/Abdominal exam: Present: distended, normal bowel sounds, soft - Expanded GI/Abdominal Exam GI/Abdominal exam: Present: ascites - Rectal Rectal Exam: Present: deferred - Catheter Type: Urethral (Dia) (red urine, moderate amount) - Extremities Exam Extremities exam: Present: pedal edema (1+, bilateral foot drop) - Neurological Exam Neurological exam: Present: altered (on Bipap) - Expanded Neurological Exam Coma Scale Eye Opening: To Voice Coma Scale Motor Response: Obeys Commands Coma Scale Verbal Response: Confused Coma Scale Total: 13 - Psychiatric Psychiatric exam: Present: flat affect - Skin Skin exam: Present: pallor, warm Internal Medicine - CN: Reslt - Labs CBC & Chem 7: 09/30/16 06:55 09/30/16 06:55 Labs: Short CBC 09/30/16 Range/Units 06:55 WBC 13.7 H (4.3-11.1) K/mcL Hgb 9.1 L (12.9-16.9) g/dL Hct 27.4 L (37.5-50.1) % Plt Count 273 (140-400) K/mcL Neutrophils # 11.6 H (1.6-8.9) K/mcL BMP 09/30/16 06:55 Sodium 143 Potassium 3.2 L Chloride 106 Carbon Dioxide 29 BUN 32 H Creatinine 0.58 L Glucose 224 H Calcium 8.0 L - ABG Interpretation ABG results: ABG ABG pH 7.30 pH Units (7.32-7.45) L 09/30/16 05:25 ABG pCO2 74 mmHg (35-45) H* 09/30/16 05:25 ABG pO2 117 mmHg (85-104) H 09/30/16 05:25 ABG O2 Saturation 98 % (95-98) 09/30/16 05:25 PT/INR, D-dimer PT 12.5 Seconds (9.4-12.1) H 09/29/16 17:38 Consult Discharge Plan - Plan [facility]errals: [facility] [Primary Care Provider] - Palliative Quality Palliative Quality: Screen for Code Status: Yes, Screen for Goals of Care: Yes, Screen for Pain: Yes, If Pain Regimen Started, Initiate Bowel Regimen: Yes, Screen for Nausea/Vomitting: Yes
--- NOTE | 2016-09-30 17:02 | Internal Med Progress Note ---
Date of Encounter: 09/30/16 Time of Encounter: 09:45 - Assessment and plan (1) ALS (amyotrophic lateral sclerosis) Current Visit: Yes Status: Chronic Assessment and plan: Patient with history of ALS and very poor prognosis. Patient is DNR comfort care arrest DNI. (2) Acute on chronic respiratory failure with hypoxemia Current Visit: Yes Status: Acute Assessment and plan: Patient uses 3 L of oxygen at group home. Secondary to pneumonia, COPD exacerbation, suspected heart failure and obstructive sleep apnea. WBC is up at 13.7. Chest x-ray shows no acute process. Physical examination revealed very diminished breath sounds and 2+ lower extremity edema. Albumin is 3.4. ABG showed respiratory acidosis. Continue BiPAP management. Continue nebulizations, IV glucocorticoids, empiric antibiotics, add IV Lasix. (3) COPD exacerbation Current Visit: Yes Status: Acute Assessment and plan: Plan as above. (4) Pneumonia Current Visit: Yes Status: Acute Assessment and plan: Plan as above. Qualifiers: Pneumonia type: due to unspecified organism Laterality: unspecified laterality Lung location: unspecified part of lung Qualified Code(s): J18.9 - Pneumonia, unspecified organism (5) Goals of care, counseling/discussion Current Visit: Yes Status: Acute Assessment and plan: Appreciate palliative services input. (6) CAD (coronary artery disease) Current Visit: Yes Status: Chronic Assessment and plan: Continue home medications. Qualifiers: Coronary Disease-Associated Artery/Lesion type: bypass graft [place] vs. transplanted heart: [place] heart Associated angina: angina presence unspecified Qualified Code(s): I25.810 - Atherosclerosis of coronary artery bypass graft(s) without angina pectoris (7) Pulmonary embolism Current Visit: Yes Status: Acute Assessment and plan: Patient with history of PE. Continue Lovenox. Qualifiers: Pulmonary embolism type: other Chronicity: unspecified Acute cor pulmonale presence: without acute cor pulmonale Qualified Code(s): I26.99 - Other pulmonary embolism without acute cor pulmonale - Subjective Interval history: Patient is on BiPAP, and very sleepy. - Constitutional Vitals: Temp Pulse Resp BP Pulse Ox 97.6 F 84 22 141/81 97 09/30/16 15:06 09/30/16 15:06 09/30/16 15:45 09/30/16 15:06 09/30/16 15:45 General appearance: Present: mild distress Exam: Patient is very sleepy. He is wearing BiPAP. I want attempt to wake him up since he is DNR comfort care arrest. - Neck Neck exam general surgery: Present: supple, trachea midline. Absent: lymphadenopathy - Respiratory Respiratory exam: Present: decreased breath sounds, rales - Cardiovascular Cardiovascular exam: Present: RRR - GI/Abdominal GI/Abdominal exam: Present: soft. Absent: distended, tenderness - Extremities Exam Extremities exam: Present: pedal edema (2+ lower extremity edema.) Internal Medicine: Result - Labs CBC & Chem 7: 09/30/16 06:55 09/30/16 06:55 Labs: Short CBC 09/30/16 Range/Units 06:55 WBC 13.7 H (4.3-11.1) K/mcL Hgb 9.1 L (12.9-16.9) g/dL Hct 27.4 L (37.5-50.1) % Plt Count 273 (140-400) K/mcL Neutrophils # 11.6 H (1.6-8.9) K/mcL BMP 09/30/16 06:55 Sodium 143 Potassium 3.2 L Chloride 106 Carbon Dioxide 29 BUN 32 H Creatinine 0.58 L Glucose 224 H Calcium 8.0 L - ABG Interpretation ABG results: ABG ABG pH 7.30 pH Units (7.32-7.45) L 09/30/16 05:25 ABG pCO2 74 mmHg (35-45) H* 09/30/16 05:25 ABG pO2 117 mmHg (85-104) H 09/30/16 05:25 ABG O2 Saturation 98 % (95-98) 09/30/16 05:25 PT/INR, D-dimer PT 12.5 Seconds (9.4-12.1) H 09/29/16 17:38 Consult Discharge Plan - Plan [facility]errals: [facility] [Primary Care Provider] -
[2016-09-30] MEDS ORDERED: Levofloxacin 750 MG/150 ML 750 MG/150 ML BAG IVPB SCH (19:00)
[2016-10-01] MEDS: Insulin LISPRO 300 UNITS/3 ML VIAL SQ SCH ×4 (00:04→18:20)
[2016-10-01] MEDS: Ipratropium/Albuterol Neb 3 ML IH SCH ×5 (05:02→20:11)
[2016-10-01 05:49] LABS: Basophils % 0.1 %; Hematocrit 26.9 % (37.5-50.1); Hemoglobin 8.8 g/dL (12.9-16.9); Immature Granulocytes % 1.2 % (0-4); Lymphocytes # 0.4 K/mcL (0.6-4.6); Lymphocytes % 2.8 %; Mean Corpuscular HGB Conc 32.7 g/dL (31.6-35.5); Mean Corpuscular Hemoglobin 29.6 pg (28.0-33.3); Mean Corpuscular Volume 90.6 fL (83.0-100.0); Mean Platelet Volume 10.2 fL (9.4-12.4); Monocytes % 7.4 %; Neutrophils # 11.6 K/mcL (1.6-8.9); Nucleated Red Blood Cells 0.2 /100 WBC (0); Platelet Count 245 K/mcL (140-400); Red Blood Count 2.97 M/mcL (4.19-5.50); Segmented Neutrophils % 88.5 %
[2016-10-01 06:05] LABS: BUN/Creatinine Ratio 49 (6-26); Blood Urea Nitrogen 33 mg/dL (8-26); Calcium 8.2 mg/dL (8.6-10.8); Chloride 98 mEq/L (98-109); Glucose 280 mg/dL (70-99); Osmolality,Calculated 317 (280-300); Phosphorous 2.2 mg/dL (2.3-4.7); Potassium 2.6 mEq/L (3.5-4.5); Sodium 145 mEq/L (136-145); eGFR For African Americans > 60 (> 60); eGFR For Non-African Americans > 60 (> 60)
[2016-10-01 06:06] LABS: Carbon Dioxide 42 mEq/L (19-29)
[2016-10-01] MEDS: *HR* Enoxaparin 100 MG/ML SYRINGE SQ SCH (06:16)
[2016-10-01 06:44] LABS: ABG Base Excess 15.2 mEq/L (-2.0 to 3.0); ABG HCO3 42.1 mEQ/L (21-27); ABG Oxygen Saturation 95 % (95-98); ABG PCO2 68 mmHg (35-45); ABG PO2 78 mmHg (85-104); ABG TCO2 44.2 mEq/L (20-26); Blood Gas FiO2 60 %
[2016-10-01] MEDS: Aspirin 81 MG TAB.CHEW PO SCH (07:31)
[2016-10-01] MEDS: MethylPREDNISolone 40 MG/ML VIAL IVP SCH (08:40)
[2016-10-01] MEDS: Piperacillin/Tazobactam 3.375 GM in D5% in Water (Mini-Bag+) 100 ML IVPB SCH ×2 (08:41→17:22)
[2016-10-01] MEDS ORDERED: Potassium Chloride 40 MEQ, Lidocaine 1% 2 ML in D5% in Water 500 ML IVPB STA (08:53)
[2016-10-01] MEDS: *HR* Morphine 2 MG/ML SYRINGE IVP PRN (09:01)
[2016-10-01] MEDS: Vancomycin 750 MG in D5% in Water 250 ML IVPB SCH ×2 (09:10→20:25)
--- NOTE | 2016-10-01 10:28 | Palliative Progress Note ---
Date of Encounter: 10/01/16 Time of Encounter: 09:15 - Assessment and plan (1) Dyspnea Current Visit: Yes Status: Acute Assessment and plan: Currently on BiPAP, seems to be tolerating it well. But does not wish to be intubated if his sister if his situation should deteriorate. Qualifiers: Dyspnea type: shortness of breath Qualified Code(s): R06.02 - Shortness of breath (2) Goals of care, counseling/discussion Current Visit: Yes Status: Acute Assessment and plan: DNR A, DNI. Her discussion with my nurse practitioner yesterday patient felt that he was not quite ready for hospice, however okay with being followed by the palliative care team at the [facility]. He did pass a swallow evaluation at the [facility] , as of this morning indicated to his medical power of magazine designer as well as myself that he would not want a PEG tube. He also does not wish to be intubated if this will [place] situation should worsen. Overall plan of care will be to try to return him to the [facility] if at all possible they can transition to hospice when it is appropriate there. (3) Anxiety Current Visit: No Status: Acute Assessment and plan: Continue current medications, patient did used to be doses of when necessary Ativan yesterday. - Time Spent With Patient Total time spent is greater than 50% in coordination of care (as documented) at patient's floor/unit and/or counseling patient: - Subjective Interval history: The patient is not talking, but does not in and shake his head. He is on BiPAP currently. History Mitzy, his medical power of magazine designer is at bedside the patient feels his breathing is about the same, he was able to indicate to Mitzy and myself that he would not a feeding tube if it was required, continues to not wish to be intubated. - Constitutional Vitals: Abnormal lab results WBC 13.0 K/mcL (4.3-11.1) H 10/01/16 05:36 RBC 2.97 M/mcL (4.19-5.50) L 10/01/16 05:36 Hgb 8.8 g/dL (12.9-16.9) L 10/01/16 05:36 Hct 26.9 % (37.5-50.1) L 10/01/16 05:36 Neutrophils # 11.6 K/mcL (1.6-8.9) H 10/01/16 05:36 Lymphocytes # 0.4 K/mcL (0.6-4.6) L 10/01/16 05:36 Nucleated RBCs/100 WBC 0.2 /100 WBC (0) H 10/01/16 05:36 PT 12.5 Seconds (9.4-12.1) H 09/29/16 17:38 APTT 38.1 Seconds (26.0-36.0) H 09/29/16 17:38 ABG pCO2 68 mmHg (35-45) H 10/01/16 06:30 ABG pO2 78 mmHg (85-104) L 10/01/16 06:30 ABG HCO3 42.1 mEQ/L (21-27) H 10/01/16 06:30 ABG Total CO2 44.2 mEq/L (20-26) H 10/01/16 06:30 ABG Base Excess 15.2 mEq/L (-2.0 to 3.0) H 10/01/16 06:30 Potassium 2.6 mEq/L (3.5-4.5) L 10/01/16 05:36 Carbon Dioxide 42 mEq/L (19-29) H* 10/01/16 05:36 BUN 33 mg/dL (8-26) H 10/01/16 05:36 Creatinine 0.67 mg/dL (0.72-1.25) L 10/01/16 05:36 BUN/Creatinine Ratio 49 (6-26) H 10/01/16 05:36 Glucose 280 mg/dL (70-99) H 10/01/16 05:36 POC Glucose 274 (58-89) H 10/01/16 00:50 Calculated Osmolality 317 (280-300) H 10/01/16 05:36 Calcium 8.2 mg/dL (8.6-10.8) L 10/01/16 05:36 Phosphorus 2.2 mg/dL (2.3-4.7) L 10/01/16 05:36 AST 43 Units/L (5-34) H 09/29/16 17:38 ALT 119 Units/L (0-55) H 09/29/16 17:38 B-Natriuretic Peptide 126 pg/mL (0-100) H 09/29/16 17:38 Albumin 3.4 g/dL (3.5-5.0) L 09/29/16 17:38 Ur Specimen Adequacy See below A 09/29/16 17:22 Urine Color Red (Yellow) A 09/29/16 17:22 Urine Clarity Cloudy (Clear) A 09/29/16 17:22 Ur Specific [place] > 1.030 (1.010-1.025) H 09/29/16 17:22 Urine Protein 100 mg/dL (Neg-Trace) H 09/29/16 17:22 Urine Glucose (UA) >=1000 mg/dL (Normal) H 09/29/16 17:22 Urine Ketones 80 mg/dL (Negative) H 09/29/16 17:22 Urine Blood Large (Negative) H 09/29/16 17:22 General appearance: Present: no acute distress - Head Head exam: Present: atraumatic, normal inspection - Eye Eye exam: Present: normal appearance - ENT ENT exam: Present: mucous membranes moist - Respiratory Respiratory exam: Present: decreased breath sounds - Cardiovascular Cardiovascular exam: Present: irregular rhythm, tachycardia - GI/Abdominal GI/Abdominal exam: Present: normal bowel sounds, soft. Absent: tenderness - Extremities Exam Extremities exam: Present: pedal edema. Absent: normal inspection, tenderness - Neurological Exam Neurological exam: Present: alert (But not speaking) - Psychiatric Psychiatric exam: Absent: agitated, anxious - Skin Skin exam: Present: dry, warm Palliative Quality Palliative Quality: Screen for Code Status: Yes, Screen for Goals of Care: Yes, Screen for Pain: Yes, If Pain Regimen Started, Initiate Bowel Regimen: Yes, Screen for Nausea/Vomitting: Yes - Labs CBC & Chem 7: 10/01/16 05:36 10/01/16 05:36 Labs: Laboratory Results - last 24 hr 09/30/16 09/30/16 09/30/16 05:54 11:34 17:27 WBC RBC Hgb Hct MCV MCH MCHC RDW Plt Count MPV Immature Gran % Seg Neutrophils % Lymphocytes % Monocytes % Eosinophils % Basophils % Neutrophils # Lymphocytes # Monocytes # Eosinophils # Basophils # Nucleated RBCs/100 WBC ABG pH ABG pCO2 ABG pO2 ABG HCO3 ABG Total CO2 ABG O2 Saturation ABG Base Excess Blood Gas Modality Inspired O2 Sodium Potassium Chloride Carbon Dioxide BUN Creatinine Est GFR ( Amer) Est GFR (Non-Af Amer) BUN/Creatinine Ratio Glucose POC Glucose 193 H 186 H 220 H Calculated Osmolality Calcium Phosphorus Vancomycin Trough 10/01/16 10/01/16 10/01/16 00:50 05:36 05:36 WBC 13.0 H RBC 2.97 L Hgb 8.8 L Hct 26.9 L MCV 90.6 MCH 29.6 MCHC 32.7 RDW 13.0 Plt Count 245 MPV 10.2 Immature Gran % 1.2 Seg Neutrophils % 88.5 Lymphocytes % 2.8 Monocytes % 7.4 Eosinophils % 0.0 Basophils % 0.1 Neutrophils # 11.6 H Lymphocytes # 0.4 L Monocytes # 1.0 Eosinophils # 0.0 Basophils # 0.0 Nucleated RBCs/100 WBC 0.2 H ABG pH ABG pCO2 ABG pO2 ABG HCO3 ABG Total CO2 ABG O2 Saturation ABG Base Excess Blood Gas Modality Inspired O2 Sodium 145 Potassium 2.6 L Chloride 98 Carbon Dioxide 42 H* BUN 33 H Creatinine 0.67 L Est GFR ( Amer) > 60 Est GFR (Non-Af Amer) > 60 BUN/Creatinine Ratio 49 H Glucose 280 H POC Glucose 274 H Calculated Osmolality 317 H Calcium 8.2 L Phosphorus 2.2 L Vancomycin Trough 10/01/16 10/01/16 05:36 06:30 WBC RBC Hgb Hct MCV MCH MCHC RDW Plt Count MPV Immature Gran % Seg Neutrophils % Lymphocytes % Monocytes % Eosinophils % Basophils % Neutrophils # Lymphocytes # Monocytes # Eosinophils # Basophils # Nucleated RBCs/100 WBC ABG pH 7.40 ABG pCO2 68 H ABG pO2 78 L ABG HCO3 42.1 H ABG Total CO2 44.2 H ABG O2 Saturation 95 ABG Base Excess 15.2 H Blood Gas Modality BIPAP Inspired O2 60 Sodium Potassium Chloride Carbon Dioxide BUN Creatinine Est GFR ( Amer) Est GFR (Non-Af Amer) BUN/Creatinine Ratio Glucose POC Glucose Calculated Osmolality Calcium Phosphorus Vancomycin Trough 18.8 - ABG Interpretation ABG results: ABG ABG pH 7.40 pH Units (7.32-7.45) 10/01/16 06:30 ABG pCO2 68 mmHg (35-45) H 10/01/16 06:30 ABG pO2 78 mmHg (85-104) L 10/01/16 06:30 ABG O2 Saturation 95 % (95-98) 10/01/16 06:30 PT/INR, D-dimer PT 12.5 Seconds (9.4-12.1) H 09/29/16 17:38 Consult Discharge Plan - Plan Referrals: SHIRAZ,PCP [Primary Care Provider] - 10/09/16 3:30 pm (THIS IS AT THE DISCHARGE CLINIC)
[2016-10-01] MEDS: Furosemide 40 MG/4 ML VIAL IVP SCH ×2 (11:24→20:25)
[2016-10-01] MEDS ORDERED: Potassium Chloride 40 MEQ, Lidocaine 1% 2 ML in D5% in Water 500 ML IVPB ONE (14:00)
--- NOTE | 2016-10-01 15:07 | Electrocardiograph Report ---
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
[2016-10-01] MEDS ORDERED: Potassium Phosphate 44 MEQ in 0.9 % Sodium Chloride 250 ML IVPB ONE (16:00)
--- NOTE | 2016-10-01 16:31 | Internal Med Progress Note ---
Date of Encounter: 10/01/16 Time of Encounter: 13:00 - Assessment and plan (1) ALS (amyotrophic lateral sclerosis) Current Visit: Yes Status: Chronic Assessment and plan: Patient with history of ALS and very poor prognosis. Patient is DNR comfort care arrest DNI. (2) Goals of care, counseling/discussion Current Visit: Yes Status: Acute Assessment and plan: Appreciate palliative services input. We will attempt to wean off BiPAP this afternoon and in the morning. (3) Acute on chronic respiratory failure with hypoxemia Current Visit: Yes Status: Acute Assessment and plan: Patient uses 3 L of oxygen at [facility]. Secondary to pneumonia, COPD exacerbation, suspected heart failure, ALS and obstructive sleep apnea. WBC is up at 13.7. Chest x-ray shows no acute process. Physical examination revealed very diminished breath sounds and 2+ lower extremity edema. Albumin is 3.4. ABG showed respiratory acidosis. wean off BiPAP to keep SaO2 88-90%. Continue nebulizations, IV glucocorticoids, empiric antibiotics, and IV Lasix. (4) COPD exacerbation Current Visit: Yes Status: Acute Assessment and plan: Plan as above. (5) Pneumonia Current Visit: Yes Status: Acute Assessment and plan: Plan as above. Qualifiers: Pneumonia type: due to unspecified organism Laterality: unspecified laterality Lung location: unspecified part of lung Qualified Code(s): J18.9 - Pneumonia, unspecified organism (6) Hematuria Current Visit: Yes Status: Acute Assessment and plan: Likely secondary to Dia catheter. We will irrigate bladder and change Dia bag. Check renal ultrasound. Qualifiers: Hematuria type: gross Qualified Code(s): R31.0 - Gross hematuria (7) CAD (coronary artery disease) Current Visit: Yes Status: Chronic Assessment and plan: Continue home medications. Qualifiers: Coronary Disease-Associated Artery/Lesion type: bypass graft [place] vs. transplanted heart: [place] heart Associated angina: angina presence unspecified Qualified Code(s): I25.810 - Atherosclerosis of coronary artery bypass graft(s) without angina pectoris (8) Pulmonary embolism Current Visit: Yes Status: Acute Assessment and plan: Patient with history of PE. Continue Lovenox. Qualifiers: Pulmonary embolism type: other Chronicity: unspecified Acute cor pulmonale presence: without acute cor pulmonale Qualified Code(s): I26.99 - Other pulmonary embolism without acute cor pulmonale - Subjective Interval history: Patient is on BiPAP, and very sleepy. He does open his eyes to verbal stimuli. nonverbal. - Constitutional Vitals: Temp Pulse Resp BP Pulse Ox 97.6 F 97 18 139/61 91 10/01/16 16:08 10/01/16 16:08 10/01/16 16:08 10/01/16 16:08 10/01/16 16:08 General appearance: Present: mild distress, pleasant Exam: Patient is a sleepy but does open his eyes. Per nurse, he was able to answer yes and no to questions by moving his head. Nonverbal. He follows some commands such as squeezing the hands of the nurse. - Eye Eye exam: Present: PERRL, sclera anicteric - Neck Neck exam general surgery: Present: supple, trachea midline. Absent: lymphadenopathy - Respiratory Respiratory exam: Present: decreased breath sounds, rhonchi, wheezes - Cardiovascular Cardiovascular exam: Present: tachycardia - GI/Abdominal GI/Abdominal exam: Present: normal bowel sounds, soft. Absent: distended, tenderness - Additional comments: Hematuria in Dia bag. - Extremities Exam Additional comments: Swelling in all extremities. - Skin Skin exam: Absent: rash Internal Medicine: Result - Labs CBC & Chem 7: 10/01/16 05:36 10/01/16 05:36 Labs: Short CBC 10/01/16 Range/Units 05:36 WBC 13.0 H (4.3-11.1) K/mcL Hgb 8.8 L (12.9-16.9) g/dL Hct 26.9 L (37.5-50.1) % Plt Count 245 (140-400) K/mcL Neutrophils # 11.6 H (1.6-8.9) K/mcL BMP 10/01/16 05:36 Sodium 145 Potassium 2.6 L Chloride 98 Carbon Dioxide 42 H* BUN 33 H Creatinine 0.67 L Glucose 280 H Calcium 8.2 L - ABG Interpretation ABG results: ABG ABG pH 7.40 pH Units (7.32-7.45) 10/01/16 06:30 ABG pCO2 68 mmHg (35-45) H 10/01/16 06:30 ABG pO2 78 mmHg (85-104) L 10/01/16 06:30 ABG O2 Saturation 95 % (95-98) 10/01/16 06:30 PT/INR, D-dimer PT 12.5 Seconds (9.4-12.1) H 09/29/16 17:38 Consult Discharge Plan - Plan Referrals: SHIRAZ,PCP [Primary Care Provider] - 10/09/16 3:30 pm (THIS IS AT THE DISCHARGE CLINIC)
[2016-10-01] MEDS: *HR* Enoxaparin 80 MG/0.8 ML SYRINGE SQ SCH (17:23)
[2016-10-01] MEDS ORDERED: Insulin DETEMIR 100 UNIT/ML X5UNITS SQ SCH (21:00)
[2016-10-02] MEDS: Insulin LISPRO 300 UNITS/3 ML VIAL SQ SCH ×5 (00:06→18:40)
[2016-10-02] MEDS: Piperacillin/Tazobactam 3.375 GM in D5% in Water (Mini-Bag+) 100 ML IVPB SCH ×2 (00:07→08:45)
[2016-10-02] MEDS: Ipratropium/Albuterol Neb 3 ML IH SCH ×5 (00:10→18:53)
[2016-10-02 05:46] LABS: Basophils % 0.1 %; Eosinophils % 0.1 %; Hematocrit 24.2 % (37.5-50.1); Hemoglobin 7.5 g/dL (12.9-16.9); Immature Granulocytes % 1.9 % (0-4); Lymphocytes # 0.9 K/mcL (0.6-4.6); Lymphocytes % 5.4 %; Mean Corpuscular Hemoglobin 29.8 pg (28.0-33.3); Mean Platelet Volume 10.8 fL (9.4-12.4); Monocytes # 2.5 K/mcL (0.0-1.3); Monocytes % 14.8 %; Neutrophils # 13.3 K/mcL (1.6-8.9); Nucleated Red Blood Cells 0.9 /100 WBC (0); Platelet Count 231 K/mcL (140-400); Red Blood Count 2.52 M/mcL (4.19-5.50); Red Cell Distribution Width 13.2 % (11.5-14.5); Segmented Neutrophils % 77.7 %
[2016-10-02 06:00] LABS: BUN/Creatinine Ratio 42 (6-26); Blood Urea Nitrogen 40 mg/dL (8-26); Calcium 7.8 mg/dL (8.6-10.8); Chloride 96 mEq/L (98-109); Glucose 188 mg/dL (70-99); Osmolality,Calculated 311 (280-300); Potassium 4.1 mEq/L (3.5-4.5); Sodium 143 mEq/L (136-145); eGFR For African Americans > 60 (> 60); eGFR For Non-African Americans > 60 (> 60)
[2016-10-02 06:04] LABS: Carbon Dioxide 41 mEq/L (19-29)
[2016-10-02] MEDS: *HR* Enoxaparin 80 MG/0.8 ML SYRINGE SQ SCH (06:16)
[2016-10-02] MEDS: Aspirin 81 MG TAB.CHEW PO SCH (08:44)
[2016-10-02] MEDS: Vancomycin 750 MG in D5% in Water 250 ML IVPB SCH (08:47)
[2016-10-02] MEDS ORDERED: MethylPREDNISolone 40 MG/ML VIAL IVP SCH (09:00)
--- NOTE | 2016-10-02 10:25 | Palliative Progress Note ---
Date of Encounter: 10/02/16 Time of Encounter: 09:15 - Assessment and plan (1) Dyspnea Current Visit: Yes Status: Acute Assessment and plan: Currently on BiPAP, seems to be tolerating it well. But does not wish to be intubated if his sister if his situation should deteriorate. The patient did tolerate 4 hours off BiPAP yesterday. We will continue try to wean today. Plan per hospitalist team Patient also has morphine for shortness of breath and/or pain. 2 doses yesterday 1 thus far today. Qualifiers: Dyspnea type: shortness of breath Qualified Code(s): R06.02 - Shortness of breath (2) Goals of care, counseling/discussion Current Visit: Yes Status: Acute Assessment and plan: DNR A, DNI. Her discussion with my nurse practitioner yesterday patient felt that he was not quite ready for hospice, however okay with being followed by the palliative care team at the [facility]. He did pass a swallow evaluation at the [facility] , as of this morning indicated to his medical power of deputy county attorney as well as myself that he would not want a PEG tube. He also does not wish to be intubated if this will [place] situation should worsen. Overall plan of care will be to [facility] can [facility] to [facility] when it is appropriate there. Plan is for attempting to wean BiPAP if we are unable to wean BiPAP BiPAP will be withdrawn. If the patient is able to survive BiPAP withdrawal or if he is able to wean plan is to return to the [facility] for further care. (3) Anxiety Current Visit: No Status: Acute Assessment and plan: Continue current medications, patient did not use any Ativan yesterday. - Time Spent With Patient Total time spent is greater than 50% in coordination of care (as documented) at patient's floor/unit and/or counseling patient: - Subjective Interval history: The patient is not talking, and is generally unresponsive to verbal at this time. She did tolerate approximate 4 hours off BiPAP yesterday but has required BiPAP the rest the time. Patient's H&H are slowly trending down and plans are for transfusion of 1 unit today. Overall the patient is able to wean we will [facility], [facility] care with him. If he is not able to wean the IPAP will be withdrawn if the patient survives he will go to the [facility] where for hospice care. - Constitutional Vitals: Abnormal lab results WBC 17.1 K/mcL (4.3-11.1) H 10/02/16 04:40 RBC 2.52 M/mcL (4.19-5.50) L 10/02/16 04:40 Hgb 7.5 g/dL (12.9-16.9) L 10/02/16 04:40 Hct 24.2 % (37.5-50.1) L 10/02/16 04:40 MCHC 31.0 g/dL (31.6-35.5) L 10/02/16 04:40 Neutrophils # 13.3 K/mcL (1.6-8.9) H 10/02/16 04:40 Monocytes # 2.5 K/mcL (0.0-1.3) H 10/02/16 04:40 Nucleated RBCs/100 WBC 0.9 /100 WBC (0) H 10/02/16 04:40 PT 12.5 Seconds (9.4-12.1) H 09/29/16 17:38 APTT 38.1 Seconds (26.0-36.0) H 09/29/16 17:38 ABG pCO2 68 mmHg (35-45) H 10/01/16 06:30 ABG pO2 78 mmHg (85-104) L 10/01/16 06:30 ABG HCO3 42.1 mEQ/L (21-27) H 10/01/16 06:30 ABG Total CO2 44.2 mEq/L (20-26) H 10/01/16 06:30 ABG Base Excess 15.2 mEq/L (-2.0 to 3.0) H 10/01/16 06:30 Chloride 96 mEq/L (98-109) L 10/02/16 04:40 Carbon Dioxide 41 mEq/L (19-29) H* 10/02/16 04:40 BUN 40 mg/dL (8-26) H 10/02/16 04:40 BUN/Creatinine Ratio 42 (6-26) H 10/02/16 04:40 Glucose 188 mg/dL (70-99) H 10/02/16 04:40 POC Glucose 311 (58-89) H 10/01/16 23:14 Calculated Osmolality 311 (280-300) H 10/02/16 04:40 Calcium 7.8 mg/dL (8.6-10.8) L 10/02/16 04:40 Phosphorus 2.2 mg/dL (2.3-4.7) L 10/01/16 05:36 AST 43 Units/L (5-34) H 09/29/16 17:38 ALT 119 Units/L (0-55) H 09/29/16 17:38 B-Natriuretic Peptide 126 pg/mL (0-100) H 09/29/16 17:38 Albumin 3.4 g/dL (3.5-5.0) L 09/29/16 17:38 Ur Specimen Adequacy See below A 09/29/16 17:22 Urine Color Red (Yellow) A 09/29/16 17:22 Urine Clarity Cloudy (Clear) A 09/29/16 17:22 Ur Specific [place] > 1.030 (1.010-1.025) H 09/29/16 17:22 Urine Protein 100 mg/dL (Neg-Trace) H 09/29/16 17:22 Urine Glucose (UA) >=1000 mg/dL (Normal) H 09/29/16 17:22 Urine Ketones 80 mg/dL (Negative) H 09/29/16 17:22 Urine Blood Large (Negative) H 09/29/16 17:22 General appearance: Present: no acute distress (On BiPAP) - Eye Eye exam: Present: normal appearance - ENT ENT exam: Present: mucous membranes moist (With BiPAP mask in place) - Respiratory Respiratory exam: Present: decreased breath sounds, rhonchi - Cardiovascular Cardiovascular exam: Present: tachycardia - GI/Abdominal GI/Abdominal exam: Present: normal bowel sounds, soft. Absent: tenderness - Extremities Exam Extremities exam: Present: pedal edema - Neurological Exam Neurological exam: Present: altered - Psychiatric Psychiatric exam: Absent: agitated, anxious - Skin Skin exam: Present: dry, warm Palliative Quality Palliative Quality: Screen for Code Status: Yes, Screen for Goals of Care: Yes, Screen for Pain: Yes, If Pain Regimen Started, Initiate Bowel Regimen: Yes, Screen for Nausea/Vomitting: Yes - Labs CBC & Chem 7: 10/02/16 04:40 10/02/16 04:40 Labs: Laboratory Results - last 24 hr 10/01/16 10/01/16 10/01/16 04:01 05:53 11:43 WBC RBC Hgb Hct MCV MCH MCHC RDW Plt Count MPV Immature Gran % Seg Neutrophils % Lymphocytes % Monocytes % Eosinophils % Basophils % Neutrophils # Lymphocytes # Monocytes # Eosinophils # Basophils # Nucleated RBCs/100 WBC Sodium Potassium Chloride Carbon Dioxide BUN Creatinine Est GFR ( Amer) Est GFR (Non-Af Amer) BUN/Creatinine Ratio Glucose POC Glucose 291 H 271 H 330 H Calculated Osmolality Calcium Magnesium Blood Type Antibody Screen Crossmatch 10/01/16 10/01/16 10/01/16 17:55 18:14 20:08 WBC RBC Hgb Hct MCV MCH MCHC RDW Plt Count MPV Immature Gran % Seg Neutrophils % Lymphocytes % Monocytes % Eosinophils % Basophils % Neutrophils # Lymphocytes # Monocytes # Eosinophils # Basophils # Nucleated RBCs/100 WBC Sodium Potassium 4.2 D Chloride Carbon Dioxide BUN Creatinine Est GFR ( Amer) Est GFR (Non-Af Amer) BUN/Creatinine Ratio Glucose POC Glucose 365 H 335 H Calculated Osmolality Calcium Magnesium Blood Type Antibody Screen Crossmatch 10/01/16 10/02/16 10/02/16 23:14 04:40 04:40 WBC 17.1 H RBC 2.52 L Hgb 7.5 L Hct 24.2 L MCV 96.0 MCH 29.8 MCHC 31.0 L RDW 13.2 Plt Count 231 MPV 10.8 Immature Gran % 1.9 Seg Neutrophils % 77.7 Lymphocytes % 5.4 Monocytes % 14.8 Eosinophils % 0.1 Basophils % 0.1 Neutrophils # 13.3 H Lymphocytes # 0.9 Monocytes # 2.5 H Eosinophils # 0.0 Basophils # 0.0 Nucleated RBCs/100 WBC 0.9 H Sodium 143 Potassium 4.1 Chloride 96 L Carbon Dioxide 41 H* BUN 40 H Creatinine 0.95 Est GFR ( Amer) > 60 Est GFR (Non-Af Amer) > 60 BUN/Creatinine Ratio 42 H Glucose 188 H POC Glucose 311 H Calculated Osmolality 311 H Calcium 7.8 L Magnesium 2.0 Blood Type Antibody Screen Crossmatch 10/02/16 09:11 WBC RBC Hgb Hct MCV MCH MCHC RDW Plt Count MPV Immature Gran % Seg Neutrophils % Lymphocytes % Monocytes % Eosinophils % Basophils % Neutrophils # Lymphocytes # Monocytes # Eosinophils # Basophils # Nucleated RBCs/100 WBC Sodium Potassium Chloride Carbon Dioxide BUN Creatinine Est GFR ( Amer) Est GFR (Non-Af Amer) BUN/Creatinine Ratio Glucose POC Glucose Calculated Osmolality Calcium Magnesium Blood Type O POSITIVE Antibody Screen NEGATIVE Crossmatch See Detail - Impressions Impressions Retroperitoneum Ultrasound 10/01/16 18:45 IMPRESSION: Unremarkable appearance of the kidneys. Urinary bladder is partially decompressed around a Dia catheter. D/ / 10/01/2016 20:21:12 Akbar Wells MD / cedric Interpreting Provider: Akbar Wells MD - ABG Interpretation ABG results: ABG ABG pH 7.40 pH Units (7.32-7.45) 10/01/16 06:30 ABG pCO2 68 mmHg (35-45) H 10/01/16 06:30 ABG pO2 78 mmHg (85-104) L 10/01/16 06:30 ABG O2 Saturation 95 % (95-98) 10/01/16 06:30 PT/INR, D-dimer PT 12.5 Seconds (9.4-12.1) H 09/29/16 17:38 Consult Discharge Plan - Plan [facility] Provider[facility] - 10/09/16 3:30 pm (THIS IS AT THE DISCHARGE CLINIC)
[2016-10-02] MEDS ORDERED: 0.9 % Sodium Chloride 250 ML ONE (11:04)
--- NOTE | 2016-10-02 12:29 | Event Note ---
Date of Encounter: 10/02/16 Time of Encounter: 12:28 Notified of patient's blood pressure 57/37. Weight up and checked on patient and family. Patient's medical power of skill training program coordinator, his sister request the patient be made comfort care only at this time. We will continue the blood. She does not appear to be overbreathing the Pap at all and is at the set rate. No further interventions we made other than the one unit of blood which is arty transfusing. He is now DNR comfort care.
--- NOTE | 2016-10-02 15:18 | Internal Med Progress Note ---
Date of Encounter: 10/02/16 Time of Encounter: 09:45 - Assessment and plan (1) ALS (amyotrophic lateral sclerosis) Current Visit: Yes Status: Chronic Assessment and plan: Patient with history of ALS and very poor prognosis. Patient is DNR comfort care. (2) Goals of care, counseling/discussion Current Visit: Yes Status: Acute Assessment and plan: Appreciate palliative services input. Patient is now DNR comfort care. Unfortunately, despite medical therapy he continues to decline. Will hold on IV antibiotics. (3) Acute on chronic respiratory failure with hypoxemia Current Visit: Yes Status: Acute Assessment and plan: Patient uses 3 L of oxygen at [facility]. Secondary to pneumonia, COPD exacerbation, suspected heart failure, ALS and obstructive sleep apnea. WBC is up at 13.7. Chest x-ray shows no acute process. Physical examination revealed very diminished breath sounds and 2+ lower extremity edema. Albumin is 3.4. ABG showed respiratory acidosis. 10/02: Patient continues to require BiPAP. (4) COPD exacerbation Current Visit: Yes Status: Acute Assessment and plan: Plan as above. (5) Pneumonia Current Visit: Yes Status: Acute Assessment and plan: Plan as above. Qualifiers: Pneumonia type: due to unspecified organism Laterality: unspecified laterality Lung location: unspecified part of lung Qualified Code(s): J18.9 - Pneumonia, unspecified organism (6) Hematuria Current Visit: Yes Status: Acute Assessment and plan: Likely secondary to Dia catheter. We will irrigate bladder and change Dia bag. Check renal ultrasound. Qualifiers: Hematuria type: gross Qualified Code(s): R31.0 - Gross hematuria (7) CAD (coronary artery disease) Current Visit: Yes Status: Chronic Assessment and plan: Continue home medications. Qualifiers: Coronary Disease-Associated Artery/Lesion type: bypass graft [place] vs. transplanted heart: red devil heart Associated angina: angina presence unspecified Qualified Code(s): I25.810 - Atherosclerosis of coronary artery bypass graft(s) without angina pectoris (8) Pulmonary embolism Current Visit: Yes Status: Acute Assessment and plan: Patient with history of PE. Continue Lovenox. Qualifiers: Pulmonary embolism type: other Chronicity: unspecified Acute cor pulmonale presence: without acute cor pulmonale Qualified Code(s): I26.99 - Other pulmonary embolism without acute cor pulmonale (9) Anemia Current Visit: Yes Status: Acute Assessment and plan: Acute on chronic anemia. Negative secondary to hematuria. Hemoglobin is 7.5 but due to hypotension, I will transfuse 1 unit of packed red blood cells. Qualifiers: Anemia type: other cause Other causes of anemia: acute posthemorrhagic Qualified Code(s): D62 - Acute posthemorrhagic anemia - Subjective Interval history: Patient is very sleepy. He does not open his eyes. - Constitutional Vitals: Temp Pulse Resp BP Pulse Ox 97.7 F 92 11 76/45 98 10/02/16 14:17 10/02/16 14:17 10/02/16 14:17 10/02/16 14:10/02/16 14:17 Exam: Patient is sleeping, he is wearing BiPAP. He does not open his eyes to verbal or mild tactile stimuli. - Respiratory Respiratory exam: Present: decreased breath sounds - Cardiovascular Cardiovascular exam: Present: tachycardia - GI/Abdominal GI/Abdominal exam: Present: normal bowel sounds, soft. Absent: distended, tenderness - Extremities Exam Extremities exam: Present: pedal edema Internal Medicine: Result - Labs CBC & Chem 7: 10/02/16 04:40 10/02/16 04:40 Labs: Short CBC 10/02/16 Range/Units 04:40 WBC 17.1 H (4.3-11.1) K/mcL Hgb 7.5 L (12.9-16.9) g/dL Hct 24.2 L (37.5-50.1) % Plt Count 231 (140-400) K/mcL Neutrophils # 13.3 H (1.6-8.9) K/mcL BMP 10/01/16 10/02/16 18:14 04:40 Sodium 143 Potassium 4.2 D 4.1 Chloride 96 L Carbon Dioxide 41 H* BUN 40 H Creatinine 0.95 Glucose 188 H Calcium 7.8 L - ABG Interpretation ABG results: ABG ABG pH 7.40 pH Units (7.32-7.45) 10/01/16 06:30 ABG pCO2 68 mmHg (35-45) H 10/01/16 06:30 ABG pO2 78 mmHg (85-104) L 10/01/16 06:30 ABG O2 Saturation 95 % (95-98) 10/01/16 06:30 PT/INR, D-dimer PT 12.5 Seconds (9.4-12.1) H 09/29/16 17:38 - Impressions Impressions Retroperitoneum Ultrasound 10/01/16 18:45 IMPRESSION: Unremarkable appearance of the kidneys. Urinary bladder is partially decompressed around a Dia catheter. D/ / 10/01/2016 20:21:12 Akbar Wells MD / cedirc Interpreting Provider: Akbar Wells MD Consult Discharge Plan - Plan [facility]errals: [facility] Provider[facility] - 10/09/16 3:30 pm (THIS IS AT THE DISCHARGE CLINIC)
[2016-10-02 15:31] VITALS: BP 90/60
[2016-10-02] MEDS ORDERED: *HR* Morphine 2 MG/ML SYRINGE IVP ONE (16:28)
[2016-10-02] MEDS ORDERED: *HR* LORazepam 2 MG/ML VIAL IVP ONE (16:29)
[2016-10-02] MEDS ORDERED: *HR* Morphine 2 MG/ML SYRINGE IVP PRN (16:30)
[2016-10-02] MEDS ORDERED: Aminoglycoside Consult 1 EACH MC ONE (21:59)
--- NOTE | 2016-10-08 18:21 | Event Note ---
Date of Encounter: 10/02/16 Time of Encounter: 18:00 note Mr. Whyte is a 76-year-old male with past medical history of CAD, PE on Lovenox , COPD, chronic respiratory failure on 3 L of oxygen and the unfortunate diagnosis of ALS with a very poor prognosis. He was living in the [facility] when he developed progressive shortness of breath and cough. On admission, he was very hypoxic and required the BiPAP. WBC was up to 13. Chest x-ray showed no acute process. He was treated with BiPAP, empiric antibiotics, aggressive nebulizations, IV steroids, IV Lasix. Despite aggressive noninvasive therapy patient continued to decline. He was transitioned to DNR comfort care and on 10/02/2016 at 19:27.
== END 2016-10-02 22:00 | disposition expired | DRG 189 ==
LOC: EMEROO 17:07 → 2ANU 17:07 → 2NNU 19:16 → SUATTDRO 21:13
PROVIDERS: ADMIT Nurse Practitioner Family; ATTEND Internal Medicine